=== PATIENT | female | born 1980 | race Caucasian/White ===

== ENCOUNTER 2016-11-07 17:25 | Emergency (ER) | payer OTHER ==
[~2016-11-07] VITALS: Ht 167.6 cm; Wt 65.8 kg
--- NOTE | 2016-11-07 18:46 | Emergency Room Report ---
History of Present Illness General Chief Complaint: Lower Extremity Injury Source: Patient Present Illness HPI 36 YO Female presents to the ED C/O 10/11 in severity right foot pain with swelling x 3 days. Pt. states pain onset was during work. pain is progressive and exacerbated with standing and walking. relieved with rest. pt. denies prior injury to extremity. pt. denies bruises or significant trauma or fall. pt. states she was seen at urgent care on and was dx with stress fracture and given splint. Denies numbness tingling or loss of sensation or gross motor movements of the extremities, incontinence of bowel or bladder. Denies CP, Palpitations, LOC, AMS, dizziness, Changes in Vision, Sensation, paresthesias, or a sudden severe headache. Allergies: Coded Allergies: HYDROXYZINE (Unverified Allergy, Unknown, 11/07/16) NAPROXEN (Unverified Allergy, Unknown, 11/07/16) Uncoded Allergies: NAPROXEN ,ATARAX (Allergy, Unknown, 11/07/16) Patient History Past Medical History: see triage record Past Surgical History: none Pertinent Family History: none Last Menstrual Period: 10/22/16 Now: No : 0 Para: 0 Reviewed Nursing Documentation: PMH: Agreed, PSxH: Agreed Nursing Documentation-PMH Past Medical History: No History, Except For History Of Psychiatric Problem: Yes - anxiety depression Review of Systems All Other Systems: negative except mentioned in HPI Physical Exam Vital Signs Date Time Temp Pulse Resp B/P Pulse Ox O2 Delivery O2 Flow Rate FiO2 11/07/16 17:43 97.9 77 16 111/71 95 Room Air Sp02 EP Interpretation: reviewed, normal General Appearance: no apparent distress, alert, GCS 15, non-toxic Head: normocephalic, atraumatic Eyes: bilateral eye PERRL, bilateral eye normal inspection ENT: hearing grossly normal, normal pharynx, no angioedema, normal voice Neck: full range of motion, supple/symm/no masses Respiratory: lungs clear, normal breath sounds, speaking full sentences Cardiovascular #1: regular rate, rhythm, no edema Cardiovascular #2: 2+ dorsalis pedis (R) Musculoskeletal: back normal, gait/station normal, normal range of motion, tender - ttp to the distal second metatarsal, mild swelling noted, no bruises or obvious deformity, no erythema, no increased temperature to palpation Neurologic: alert, oriented x3, responsive, motor strength/tone normal, sensory intact, speech normal Psychiatric: judgement/insight normal, memory normal, mood/affect normal Skin: normal color, no rash, warm/dry, well hydrated Medical Decision Making PA Attestation Dr. soto is my supervising Physician whom patient management has been discussed with. Diagnostic Impression: Primary Impression: Stress fracture of foot with routine healing Qualified Codes: M84.374D - Stress fracture, right foot, subsequent encounter for fracture with routine healing Additional Impression: Foot sprain Qualified Codes: S93.601A - Unspecified sprain of right foot, initial encounter ER Course 36 YO Female presents to the ED C/O 10/11 in severity right foot pain with swelling x 3 days. Pt. states pain onset was during work. pain is progressive and exacerbated with standing and walking. relieved with rest. pt. denies prior injury to extremity. pt. denies bruises or significant trauma or fall. pt. states she was seen at urgent care on and was dx with stress fracture and given splint. Denies numbness tingling or loss of sensation or gross motor movements of the extremities, incontinence of bowel or bladder. Denies CP, Palpitations, LOC, AMS, dizziness, Changes in Vision, Sensation, paresthesias, or a sudden severe headache. Ddx considered but are not limited to Fracture, dislocation, contusion, Sprain/ Strain/Spasm. Vital signs: are WNL, pt. is afebrile H&PE are most consistent with musculoskeletal injury will perform imaging to r/ o fractures/dislocations. ORDERS: - X-ray Right foot 3 views - positive for possible healing stress fracture of the second metatarsal, negative for acute fx, Dislocation, or significant soft tissue injury, per preliminary read in ED by Dr. Pope - interpretation is scribed by PA. ED INTERVENTIONS: - RE-application of pre-fabricated posterior short leg walking boot by blend technician. pt. remains NVI. DISCHARGE: At this time pt. is stable for d/c to home. Will provide printed patient care instructions, and any necessary prescriptions. Care plan and follow up instructions have been discussed with the patient prior to discharge. Last Vital Signs Date Time Temp Pulse Resp B/P Pulse Ox O2 Delivery O2 Flow Rate FiO2 11/07/16 17:43 97.9 77 16 111/71 95 Room Air Disposition: HOME, SELF-CARE Condition: Stable Scripts Ibuprofen* (MOTRIN*) 600 Mg Tablet 600 MG ORAL THREE TIMES A DAY, #30 TAB 0 Refills Prov: Milena Thompson 11/07/16 Departure Forms: Return to Work Return to Work Date: Nov 07, 2016 Work Restrictions: No Prolonged Standing Other Restrictions: light duty x 1 week. Return to Full Activity: Nov 14, 2016 Patient Instructions: Foot Sprain, Stress Fracture Additional Instructions: Take medications as directed. Follow up with a Primary Care Provider in 3-5 days, even if your symptoms have resolved. --Please review list of primary care clinics, if you do not already have a primary care provider Return sooner to ED if new symptoms occur, or current symptoms become worse. - Please note that this Emergency Department Report was dictated using [employer] technology software, occasionally this can lead to erroneous entry secondary to interpretation by the dictation equipment. Milena Thompson Nov 07, 2016 18:46
[2016-11-07] MEDS ORDERED: IBUPROFEN600 MG ORAL (18:48)
[2016-11-07 18:57] VITALS: BP 111/71
--- NOTE | 2016-11-08 11:45 | Diagnostic Imaging Report ---
Indication: Pain Comparison: None Findings: 3 views of the right foot were obtained. No acute fractures, malalignment, erosions or periostitis are identified. Bone mineralization is within normal limits. Soft tissues are unremarkable. Impression: Negative examination of the right foot.
== END 2016-11-07 19:20 | disposition home or self-care (01) ==
LOC: EMR 19:03
DX: M84.374A Stress fracture, right foot, initial encounter for fracture (principal); X50.9XXA Other and unspecified overexertion or strenuous movements or postures, initial encounter; Y92.89 Other specified places as the place of occurrence of the external cause; Y99.0 Civilian activity done for income or pay
CPT/HCPCS: 99283